=== PATIENT | female | born 1985 | race Caucasian/White ===

== ENCOUNTER 2016-11-14 06:44 | Day surgery (SDC) | payer BC ==
[2016-11-13 20:32] LABS: HEMATOCRIT 38.9 % (36.0-48.0); HEMOGLOBIN 12.4 g/dL (12.0-16.0)
[2016-11-13 20:46] LABS: A/G RATIO 0.9 (0.7-1.9); ALBUMIN 3.3 G/DL (3.5-5.0); ALKALINE PHOSPHATASE 74 U/L (45-117); BUN (BLOOD UREA NITROGEN) 11 MG/DL (6-23); CALCIUM, SERUM 8.7 MG/DL (8.5-10.4); CHLORIDE, SERUM 108 MMOL/L (96-112); CO2 (CARBON DIOXIDE) 26 MMOL/L (24-34); CREATININE 0.77 MG/DL (0.55-1.02); GFR AFRICAN AMERICAN 118 ML/MIN (>=60); GFR NON AFRICAN AMERICAN 102 ML/MIN (>=60); GLOBULIN 3.7 G/DL (2.5-4.1); GLUCOSE, SERUM 84 MG/DL (60-99); POTASSIUM, SERUM 4.4 MMOL/L (3.5-5.3); SGOT(AST) 13 U/L (5-40); SGPT(ALT) 17 U/L (5-65); SODIUM, SERUM 141 MMOL/L (135-148); TOTAL BILIRUBIN 0.2 MG/DL (0-1.2)
--- NOTE | ~2016-11-14 | OP ---
Record Of Operation [facility] [address] [place]. [address] NAME: JOSE CAO : 83 STATUS : REG [facility] [place] PAT#: [id number] AGE: 31 ADM/REG DATE : 11/14/16 MR#: [id number] REPORT SERV DATE: 11/14/16 DICTATED BY: BRENDEN TAMAYO DATE: 11/14/16 REPORT STATUS : Draft TRANSCRIBED BY: MODL DATE: 11/14/16 DATE OF PROCEDURE: 11/14/2016 PREOPERATIVE DIAGNOSIS: Chronic cholecystitis with cholelithiasis. POSTOPERATIVE DIAGNOSIS: Chronic cholecystitis with cholelithiasis. PROCEDURE: Laparoscopic cholecystectomy (two-site). DESCRIPTION OF OPERATIVE PROCEDURE: The patient was brought to the operating suite, placed in supine position, and underwent satisfactory general endotracheal anesthesia without incident. The skin of the abdomen was scrubbed, prepped, and draped in usual sterile fashion. 0.5% Marcaine with epinephrine utilized as supplemental local anesthesia at all intended trocar sites. Initially, an infraumbilical incision was performed dissecting through the skin and subcutaneous tissue to the umbilical fascia. This was in turn grasped with a Pedro clamp and elevated and a disposable Veress insufflation needle was inserted through the umbilical fascia into the peritoneal cavity. Intraperitoneal tip location was ascertained using the saline hanging drop method following which CO2 was insufflated for pressures of 15 mmHg throughout the case. After adequate insufflation pressures were achieved, Veress needle was removed, disposable bladed/shielded 11 mm trocar was inserted through the umbilical fascia into the peritoneal cavity following which a rigid forward-viewing 10 mm laparoscope was inserted. Visualization of the intraabdominal parietes revealed no evidence of injury from initial insufflation or puncture. A cursory examination of the pelvis was normal. Attention was turned to the upper abdomen where an additional 5 mm trocar was placed to the right of falciform ligament. An additional 5 mm grasping instrument was inserted through the umbilical fascia next to the umbilical trocar. The fundus and body of the gallbladder grasped and elevated. Dissection in the triangle of Calot and infundibular area was successful in removing any fibrofatty inflammatory adhesions. Dissection of the triangle of Calot was successful in identifying and skeletonizing the cystic duct, cystic duct and common duct junction, as well as the cystic artery. Critical view was obtained. Both of these structures were controlled with multiple applications of Weck 5 mm polymer clip system and divided. Then using spatula cautery dissection, the peritoneal attachments of the gallbladder to the liver were divided. The gallbladder was removed from the subhepatic space. Hemostasis was assured. Next, the camera was switched to the 5 mm epigastric port. The gallbladder was grasped by Record Of Operation [address] [place]. [address] NAME: JOSE CAO : 83 STATUS : [facility] [place] PAT#: [id number] AGE: 31 ADM/REG DATE : 11/14/16 MR#: [id number] REPORT SERV DATE: 11/14/16 DICTATED BY: BRENDEN TAMAYO DATE: 11/14/16 REPORT STATUS : Draft TRANSCRIBED BY: MER DATE: 11/14/16 its neck and placed inside an Endo retrieval pouch and removed through the umbilicus. Trocars were removed. No muscular bleeding was noted. The umbilicus was closed with [id number] suture of 0 Vicryl, subcutaneous tissue was closed at all sites with interrupted 4-0 Vicryl, and running subcuticular stitch of 4-0 Vicryl for the skin. Dermabond skin adhesive was placed. The patient tolerated the procedure well and was returned to PACU in stable condition. At the termination of the procedure, sponge, needle, lap, and instrument counts were correct x3. ESTIMATED BLOOD LOSS: Less than 10 mL. LUZ/MER Brenden Tamayo M.D. / [id number] CC: Froylan Parra LESLIE ARMSTRONG
[~2016-11-14 06:44] MED LIST: ACET500CAP PO; GLUCPH8 PO; IBU400 PO; MULTIVIT/MIN PO; VALTREX5 PO; VITAMIN D31000 UNIT PO; WELLXL300 PO; [UNRECOGNIZED DRUG - OTHER] PO; [UNRECOGNIZED DRUG - OTHER] PO
== END 2016-11-14 12:44 | disposition home or self-care (01) ==
LOC: SDC 06:44
PROVIDERS: Specialist
PROC: 0FT44ZZ Resection of Gallbladder, Percutaneous Endoscopic Approach (ICD-10-PCS; principal; 2016-11-14 08:45)
DX: K80.10 Calculus of gallbladder with chronic cholecystitis without obstruction (principal); K82.4 Cholesterolosis of gallbladder; E66.9 Obesity, unspecified; F41.9 Anxiety disorder, unspecified; F32.9 Major depressive disorder, single episode, unspecified; F31.9 Bipolar disorder, unspecified; D64.9 Anemia, unspecified; G43.909 Migraine, unspecified, not intractable, without status migrainosus; Z79.899 Other long term (current) drug therapy; Z79.84 Long term (current) use of oral hypoglycemic drugs
CPT/HCPCS: 36415; 76000; 80053; 82962; 84703; 85014; 85018; 88304; A9270-GY; J0690; J1170; J1885; J2250; J2405; J2710; J3010